=== PATIENT | female | born 2000 | race Caucasian/White ===

== ENCOUNTER 2022-01-27 20:01 | Emergency (ER) | payer OTHER ==
[2022-01-28] MEDS ORDERED: IBUPROFEN800 MG PO (02:56)
== END 2022-01-28 03:42 | disposition home or self-care (01) ==
LOC: ER1 20:01
DX: S01.111A Laceration without foreign body of right eyelid and periocular area, initial encounter (principal); S16.1XXA Strain of muscle, fascia and tendon at neck level, initial encounter; Z88.0 Allergy status to penicillin; V49.40XA Driver injured in collision with unspecified motor vehicles in traffic accident, initial encounter; Y92.410 Unspecified street and highway as the place of occurrence of the external cause
CPT/HCPCS: 12011; 70450; 72125; 99283